=== PATIENT | male | born 1995 | race Caucasian/White ===

== ENCOUNTER 2017-06-12 15:53 | Emergency (ER) | END 2017-06-12 18:07 | disposition left against medical advice (07) | LOC: UCCORT 15:53 | DX: R11.2 Nausea with vomiting, unspecified (principal); R19.7 Diarrhea, unspecified; Z53.21 Procedure and treatment not carried out due to patient leaving prior to being seen by health care provider ==

== ENCOUNTER 2017-07-04 14:36 | Emergency (ER) | payer BC ==
[2017-07-04 17:18] VITALS: BP 130/85
[2017-07-04] MEDS ORDERED: Ondansetron ODT TAB* 4 MG PO ONE (17:36)
--- NOTE | 2017-07-04 17:44 | UC ---
Abdominal Pain Male HPI - HPI Summary HPI Summary: 22 yo male ate some week old [employer] food no f/c initially n/v/d onset 4 days ago now with nausea no vomiting 6 episodes diarrhea today no abd pain except after eating - History of Current Complaint Chief Complaint: UCGI Stated Complaint: VOMITING Time Seen by Provider: 07/04/17 17:22 Hx Obtained From: Patient Onset/Duration: Gradual Onset, Lasting Days Timing: Constant Severity Initially: Severe Severity Currently: Mild Pain Intensity: 0 Pain Scale Used: 0-10 Numeric Location: Diffuse Character: Cramping Aggravating Factor(s): Other Associated Signs And Symptoms: Positive: Decreased Appetite, Diarrhea - Allergies/Home Medications Allergies/Adverse Reactions: Allergies Allergy/AdvReac Type Severity Reaction Status Date / Time No Known Allergies Allergy Verified 07/04/17 17:16 PMH/Surg Hx/FS Hx/Imm Hx Previously Healthy: Yes - Surgical History Surgical History: None - Family History Known Family History: Negative: Cardiac Disease, Hypertension, Diabetes - Social History Alcohol Use: Weekly Substance Use Type: None Smoking Status (MU): Never Smoked Tobacco Have You Smoked in the Last Year: No Review of Systems Constitutional: Fever Gastrointestinal: Vomiting, Diarrhea, Nausea Is Patient Immunocompromised?: No All Other Systems Reviewed And Are Negative: Yes Physical Exam Triage Information Reviewed: Yes Appearance: Well-Appearing, No Pain Distress, Well-Nourished Vital Signs: Initial Vital Signs Temp 98.6 F 07/04/17 17:13 Pulse 82 07/04/17 17:13 Resp 16 07/04/17 17:13 BP 130/85 07/04/17 17:13 Pulse Ox 99 07/04/17 17:13 Vital Signs Reviewed: Yes Eyes: Positive: Conjunctiva Clear ENT: Negative: Hearing grossly normal, Nasal congestion, Nasal drainage, Muffled voice, Hoarse voice, Dental tenderness, Sinus tenderness, Uvula midline Neck: Positive: Supple, Nontender, No Lymphadenopathy Respiratory: Positive: Lungs clear, Normal breath sounds, No respiratory distress, No accessory muscle use Cardiovascular: Positive: RRR, No Murmur Abdomen Description: Positive: Nontender, No Organomegaly, Soft. Negative: CVA Tenderness (R), CVA Tenderness (L) Bowel Sounds: Positive: Present Musculoskeletal: Positive: ROM Intact, No Edema Neurological: Positive: Alert Psychological Exam: Normal Skin Exam: Normal Abd Pain Male Course/Dx - Differential Dx/Clinical Impression Provider Diagnoses: acute vomiting /diarrhea. ?food poisoning. well hydrated Discharge - Discharge Plan Condition: Stable Disposition: HOME Prescriptions: Ondansetron TAB* [Zofran Tab*] 4 mg PO Q6H PRN #8 tab PRN Reason: Nausea Patient Education Materials: Acute Diarrhea (ED) Referrals: Non Staff,Doctor [Primary Care Provider] - Additional Instructions: bring in stools for studies recheck for new or worsening symptoms recheck in 2-3 days if not better
== END 2017-07-04 18:01 | disposition home or self-care (01) ==
LOC: UCCORT 14:36
DX: R11.11 Vomiting without nausea (principal); R19.7 Diarrhea, unspecified
CPT/HCPCS: 99212; A9270-GY; G0463